=== PATIENT | male | born 1945 ===

== ENCOUNTER 2025-01-04 06:00 | Outpatient (CLI) | payer OTHER ==
[~2025-01-04] VITALS: Ht 162.6 cm; Wt 61.2 kg
[2025-01-04 08:18] VITALS: BP 180/110; BP 200/110
[2025-01-04 08:25] LABS: HEMATOCRIT 41.4 % (39.0-48.0); MEAN CELL VOLUME 96.2 fL (80.0-100.00); MEAN CORPUSCULAR HEMOGLOBIN 32.6 pg (27.00-32.0); MEAN CORPUSCULAR HGB CONC 33.9 g/dl (32.0-36.0); PLATELET COUNT 463 K/uL (150-450); RED CELL DISTRIBUTION WIDTH 13.7 % (11.5-14.5)
[2025-01-04 08:33] LABS: PH,URINE 6.5 (5.0-8.0); URINE APPEARANCE Clear; URINE BILIRRUBIN Negative (NEGATIVE); URINE BLOOD Trace; URINE COLOR Yellow; URINE GLUCOSE Negative (NEGATIVE); URINE KETONE Negative (NEGATIVE); URINE LEUKOCYTE Negative; URINE NITRATE Negative; URINE PROTEIN Negative (NEGATIVE); URINE UROBILINOGEN 0.2 E.U./dl
[2025-01-04 08:37] LABS: URINE RBC 21.2 uL (0.0-20.8)
[2025-01-04 08:59] LABS: INR 1.01; PARTIAL THROMBOPLASTIN TIME 27.4 SECONDS (22.0-34.0)
[2025-01-04 09:40] LABS: ALBUMIN 3.9 gm/dL (3.4-5.0); BILIRUBIN TOTAL 0.43 mg/dL (0.3-1.2); CALCIUM 9.5 mg/dL (8.5-10.1); CREATININE SERUM 1.13 mg/dL (0.70-1.30); GFR 62.92; POTASSIUM 4.74 mEq/L (3.5-5.1); TOTAL PROTEIN 7.9 gm/dL (6.4-8.2)
[2025-01-04 09:47] LABS: URINE BACTERIA 2.4 uL (0.0-1933); URINE EPITHELIAL CELLS 0.3 uL (0.0-38.8); URINE WBC 0.4 uL (0.0-23.2)
[2025-01-09 09:49] VITALS: BP 180/95
== END 2025-01-04 06:01 | disposition home or self-care (01) ==
LOC: RAD 06:00 → ADM 07:30 → EDSTATUS 01-10 07:30 → CIR.AMB 01-10 07:30
PROVIDERS: ATTEND Surgery
DX: R22.2 Localized swelling, mass and lump, trunk (principal)